=== PATIENT | female | born 1990 | race Caucasian/White ===

== ENCOUNTER 2018-08-02 05:00 | Inpatient (IN) | payer OTHER ==
[~2018-08-02] VITALS: Ht 170.2 cm; Wt 134.0 kg
[~2018-08-02 05:00] MED LIST: ALBU90OI INH; BCP; BIRTH CONTROLE; CEPH500 PO; CIPR500 PO; CLAR250 PO; Cleocin HCl300 MG PO; DIPATR PO; DOXY100 PO; ERYSTE250 PO; HYDACE5 PO; HYDGUAL120 PO; LABE100 PO; LISI20 PO; METF500C PO; NAPR500 PO; ONDA4ODT MM; OXYACE5T PO; PROM25 PO; RXDIPATR PO; RXOXYACE PO; SULTRIDS PO; TRAM50 PO; VITAMIN D32000 UNIT PO
[2018-08-02] MEDS ORDERED: LABE200 PO (05:21)
[2018-08-02] MEDS ORDERED: IRON160 M1 PO (05:22)
[2018-08-02] MEDS ORDERED: DOCU100 PO (05:23)
[2018-08-02] MEDS ORDERED: EVENING PRIMR1000 MG PO (05:24)
[2018-08-02 05:55] LABS: BASOPHILS ABSOLUTE AUTO 0.03 K/mm3 (0.00-0.23); BASOPHILS PERCENT AUTO 0 % (0-2); EOSINOPHILS ABSOLUTE AUTO 0.07 K/mm3 (0.00-0.68); EOSINOPHILS PERCENT AUTO 1 % (0-6); Hematocrit 33.7 % (33.0-51.0); Hemoglobin 10.6 g/dL (11.5-16.0); IMMATURE GRAN ABSOLUTE AUTO 0.05 K/mm3 (0.00-0.10); IMMATURE GRAN PERCENT AUTO 1 % (0-1); LYMPHOCYTES ABSOLUTE AUTO 2.47 K/mm3 (0.84-5.20); LYMPHOCYTES PERCENT AUTO 25 % (21-46); MONOCYTES ABSOLUTE AUTO 0.73 K/mm3 (0.16-1.47); MONOCYTES PERCENT AUTO 8 % (4-13); Mean Corpuscular HGB 25.7 pg (26.0-34.0); Mean Corpuscular HGB Conc 31.5 g/dL (31.5-36.5); Mean Corpuscular Volume 82 fL (80-100); Mean Platelet Volume 11.3 fL (9.1-12.4); NEUTROPHILS ABSOLUTE AUTO 6.42 K/mm3 (1.96-9.15); NEUTROPHILS PERCENT AUTO 66 % (41-73); Platelet Count 181 K/mm3 (150-400); RDW Coefficient Variation 15.8 % (11.7-14.2); RDW Standard Deviation 46.3 fL (35.1-46.3); Red Blood Cell Count 4.12 M/mm3 (3.80-5.20); White Blood Cell Count 9.77 K/mm3 (4.00-11.30)
[2018-08-02 06:15] LABS: Alanine Aminotransfer (ALT/SGP 11 U/L (12-78); Albumin, Blood 2.6 g/dL (3.4-5.0); Albumin/Globulin Ratio 0.6 (0.8-1.8); Alk Phos 132 U/L (50-136); Anion Gap 9 mmol/L (6-16); Aspartate Aminotrans (AST/SGOT 11 U/L (12-37); Bilirubin, Direct <0.1 mg/dL (0.0-0.3); Bilirubin, Indirect Unable to Calculate mg/dL (0.1-0.7); Bilirubin, Total 0.7 mg/dL (0.1-1.0); Blood Urea Nitrogen 9 mg/dL (8-24); Bun/Creatinine Ratio 13.4 (12.0-20.0); CO2, Blood 21 mmol/L (21-32); Calcium, Blood 9.8 mg/dL (8.5-10.1); Chloride, Blood 107 mmol/L (98-108); Creatinine, Blood 0.67 mg/dL (0.40-1.00); Glomerular Filtration Rate >60 (60-); Glucose, Blood 92 mg/dL (70-99); Sodium, Blood 137 mmol/L (136-145); Total Protein, Blood 6.6 g/dL (6.4-8.2)
--- NOTE | 2018-08-02 12:36 | NUR ---
[facility] CALLED OR FOR EPIDURAL
--- NOTE | 2018-08-02 14:30 | NUR ---
ASSUMED CARE OF PT. IN BED, FRIENDS AND FOB AT BEDSIDE.
--- NOTE | 2018-08-02 18:47 | NUR ---
REPORT TO ONCOMING SHIFT
[2018-08-03 05:39] LABS: BASOPHILS ABSOLUTE AUTO 0.01 K/mm3 (0.00-0.23); BASOPHILS PERCENT AUTO 0 % (0-2); EOSINOPHILS ABSOLUTE AUTO 0.02 K/mm3 (0.00-0.68); EOSINOPHILS PERCENT AUTO 0 % (0-6); Hematocrit 29.3 % (33.0-51.0); Hemoglobin 9.2 g/dL (11.5-16.0); IMMATURE GRAN ABSOLUTE AUTO 0.06 K/mm3 (0.00-0.10); IMMATURE GRAN PERCENT AUTO 1 % (0-1); LYMPHOCYTES ABSOLUTE AUTO 1.58 K/mm3 (0.84-5.20); LYMPHOCYTES PERCENT AUTO 14 % (21-46); MONOCYTES ABSOLUTE AUTO 0.82 K/mm3 (0.16-1.47); MONOCYTES PERCENT AUTO 7 % (4-13); Mean Corpuscular HGB 25.9 pg (26.0-34.0); Mean Corpuscular HGB Conc 31.4 g/dL (31.5-36.5); Mean Corpuscular Volume 83 fL (80-100); Mean Platelet Volume 10.9 fL (9.1-12.4); NEUTROPHILS ABSOLUTE AUTO 8.81 K/mm3 (1.96-9.15); NEUTROPHILS PERCENT AUTO 78 % (41-73); Platelet Count 165 K/mm3 (150-400); RDW Coefficient Variation 15.7 % (11.7-14.2); Red Blood Cell Count 3.55 M/mm3 (3.80-5.20)
[2018-08-04] MEDS ORDERED: IBUP800 PO (12:42)
--- NOTE | 2018-08-04 23:04 | NUR ---
PT DISCHARGED TO HOME. DISCHARGE INSTRUCTIONS GIVEN. NO QUESTIONS OR CONCERNS AT THIS TIME. ADVISED TO CALL WITH ANY QUESTIONS. TO F/U AT [facility] AND WEDNESDAY. PRESCRIPTION GIVEN TO PT.
== END 2018-08-04 20:42 | disposition home or self-care (01) | DRG 807 ==
LOC: BC 05:00
PROVIDERS: ADMIT Nurse Practitioner Obstetrics & Gynecology
PROC: 10E0XZZ Delivery of Products of Conception, External Approach (ICD-10-PCS; principal; 2018-08-02)
PROC: 3E0R3BZ Introduction of Anesthetic Agent into Spinal Canal, Percutaneous Approach (ICD-10-PCS; 2018-08-02)
PROC: 3E0P7VZ Introduction of Hormone into Female Reproductive, Via Natural or Artificial Opening (ICD-10-PCS; 2018-08-02)
PROC: 3E033VJ Introduction of Other Hormone into Peripheral Vein, Percutaneous Approach (ICD-10-PCS; 2018-08-02)
PROC: 10907ZC Drainage of Amniotic Fluid, Therapeutic from Products of Conception, Via Natural or Artificial Opening (ICD-10-PCS; 2018-08-02)
DX: O11.4 Pre-existing hypertension with pre-eclampsia, complicating childbirth (principal); Z37.0 Single live birth; Z3A.37 37 weeks gestation of pregnancy; Z88.1 Allergy status to other antibiotic agents; Z88.5 Allergy status to narcotic agent; Z88.0 Allergy status to penicillin; Z88.8 Allergy status to other drugs, medicaments and biological substances
CPT/HCPCS: 36415; 51702; 80053; 82248; 82947; 85025; A9270; J1885; J2590; J3010; J7120

== ENCOUNTER 2019-10-28 20:09 | Emergency (ER) | payer OTHER ==
[~2019-10-28] VITALS: Ht 170.2 cm; Wt 135.2 kg
[~2019-10-28 20:09] MED LIST changes: +DOCU100 PO; +EVENING PRIMR1000 MG PO; +IBUP800 PO; +IRON160 M1 PO
[2019-10-28] MEDS ORDERED: Buspirone HCl15 MG PO (20:49)
[2019-10-28 21:01] LABS: Source, Urine Clean Catch
[2019-10-28 21:01] LABS: BASOPHILS ABSOLUTE AUTO 0.06 K/mm3 (0.00-0.23); BASOPHILS PERCENT AUTO 1 % (0-2); EOSINOPHILS ABSOLUTE AUTO 0.13 K/mm3 (0.00-0.68); EOSINOPHILS PERCENT AUTO 1 % (0-6); Hematocrit 38.8 % (33.0-51.0); Hemoglobin 12.4 g/dL (11.5-16.0); IMMATURE GRAN ABSOLUTE AUTO 0.03 K/mm3 (0.00-0.10); IMMATURE GRAN PERCENT AUTO 0 % (0-1); LYMPHOCYTES ABSOLUTE AUTO 3.08 K/mm3 (0.84-5.20); LYMPHOCYTES PERCENT AUTO 31 % (21-46); MONOCYTES ABSOLUTE AUTO 0.74 K/mm3 (0.16-1.47); MONOCYTES PERCENT AUTO 7 % (4-13); Mean Corpuscular HGB 26.1 pg (26.0-34.0); Mean Corpuscular Volume 82 fL (80-100); NEUTROPHILS ABSOLUTE AUTO 6.06 K/mm3 (1.96-9.15); NEUTROPHILS PERCENT AUTO 60 % (41-73); Platelet Count 259 K/mm3 (150-400); RDW Coefficient Variation 13.2 % (11.7-14.2); Red Blood Cell Count 4.76 M/mm3 (3.80-5.20)
[2019-10-28 21:05] LABS: Appearance, Urine Clear (Clear); Bilirubin, Urine Neg (Neg); Blood, Urine 3+ (Neg); Color, Urine Yellow (P-Yellow); Glucose Qualitative, Urine Neg (Neg); Ketones, Urine Neg (Neg); Leukocyte Esterase, Urine Neg (Neg); Nitrite, Urine Neg (Neg); Protein, Urine 2+ (Neg); Urobilinogen, Urine NORM (Normal); pH, Urine 6.5 (5.0-8.0)
[2019-10-28 21:12] LABS: White Blood Cells, Urine Not Seen /hpf (0-5)
[2019-10-28 21:13] LABS: Bacteria Few /hpf; Mucus Light (0-Heavy); Squamous Epithelial Cells Few /hpf (Few)
[2019-10-28 22:21] LABS: Alanine Aminotransfer (ALT/SGP 19 U/L (12-78); Albumin, Blood 3.4 g/dL (3.4-5.0); Albumin/Globulin Ratio 0.9 (0.8-1.8); Alk Phos 68 U/L (50-136); Anion Gap 6 mmol/L (6-16); Aspartate Aminotrans (AST/SGOT 7 U/L (12-37); Bilirubin, Total 0.4 mg/dL (0.1-1.0); Blood Urea Nitrogen 11 mg/dL (8-24); Bun/Creatinine Ratio 12.7 (12.0-20.0); CO2, Blood 28 mmol/L (21-32); Calcium, Blood 8.9 mg/dL (8.5-10.1); Chloride, Blood 107 mmol/L (98-108); Creatinine, Blood 0.87 mg/dL (0.40-1.00); Globulin, Blood 3.9 g/dL (2.2-4.0); Glomerular Filtration Rate >60 (60-); Glucose, Blood 109 mg/dL (70-99); Potassium, Blood 3.5 mmol/L (3.5-5.5); Sodium, Blood 141 mmol/L (136-145); Total Protein, Blood 7.3 g/dL (6.4-8.2)
[2019-10-28] MEDS ORDERED: IBUP400 PO (22:50)
[2019-10-28] MEDS ORDERED: ONDA4ODT SL (22:50)
[2019-10-28] MEDS ORDERED: Percocet 5-3251 EACH PO (22:50)
== END 2019-10-28 23:50 | disposition home or self-care (01) ==
LOC: ER 20:09
PROVIDERS: Emergency Medicine
DX: K65.9 Peritonitis, unspecified (principal); I10 Essential (primary) hypertension; Z91.09 Other allergy status, other than to drugs and biological substances; Z88.0 Allergy status to penicillin; Z88.5 Allergy status to narcotic agent; Z87.891 Personal history of nicotine dependence; Z79.899 Other long term (current) drug therapy
CPT/HCPCS: 36415; 74176; 80053; 81001; 81025; 83690; 85025; 96374; 96376; 99284-25; A9270; A9270-GY

== ENCOUNTER 2019-11-18 17:07 | Observation (INO) | payer OTHER ==
[~2019-11-18] VITALS: Ht 170.2 cm; Wt 135.2 kg
[~2019-11-18 17:07] MED LIST changes: +Buspirone HCl15 MG PO; +IBUP400 PO; +ONDA4ODT SL; +Percocet 5-3251 EACH PO
[2019-11-18 19:19] LABS: Source, Urine Clean Catch
[2019-11-18 19:19] LABS: BASOPHILS ABSOLUTE AUTO 0.04 K/mm3 (0.00-0.23); BASOPHILS PERCENT AUTO 0 % (0-2); EOSINOPHILS ABSOLUTE AUTO 0.16 K/mm3 (0.00-0.68); EOSINOPHILS PERCENT AUTO 2 % (0-6); Hematocrit 38.1 % (33.0-51.0); Hemoglobin 11.8 g/dL (11.5-16.0); IMMATURE GRAN ABSOLUTE AUTO 0.03 K/mm3 (0.00-0.10); IMMATURE GRAN PERCENT AUTO 0 % (0-1); LYMPHOCYTES ABSOLUTE AUTO 2.95 K/mm3 (0.84-5.20); LYMPHOCYTES PERCENT AUTO 29 % (21-46); MONOCYTES ABSOLUTE AUTO 0.67 K/mm3 (0.16-1.47); MONOCYTES PERCENT AUTO 7 % (4-13); Mean Corpuscular HGB 25.3 pg (26.0-34.0); Mean Corpuscular Volume 82 fL (80-100); Mean Platelet Volume 10.3 fL (9.1-12.4); NEUTROPHILS PERCENT AUTO 63 % (41-73); Platelet Count 290 K/mm3 (150-400); RDW Standard Deviation 38.6 fL (35.1-46.3); Red Blood Cell Count 4.67 M/mm3 (3.80-5.20); White Blood Cell Count 10.35 K/mm3 (4.00-11.30)
[2019-11-18 19:22] LABS: Bilirubin, Urine Neg (Neg); Blood, Urine 2+ (Neg); Glucose Qualitative, Urine Neg (Neg); Ketones, Urine 1+ (Neg); Leukocyte Esterase, Urine Neg (Neg); Nitrite, Urine Neg (Neg); Protein, Urine 1+ (Neg); Specific Gravity, Urine 1.025 (1.003-1.022); Urobilinogen, Urine 1+ (Normal)
[2019-11-18 19:30] LABS: Appearance, Urine Clear (Clear); Color, Urine Yellow (P-Yellow)
[2019-11-18 19:31] LABS: Bacteria Few /hpf; Squamous Epithelial Cells Few /hpf (Few); White Blood Cells, Urine 0-2 /hpf (0-5)
[2019-11-18 19:40] LABS: Alanine Aminotransfer (ALT/SGP 27 U/L (12-78); Albumin, Blood 3.5 g/dL (3.4-5.0); Albumin/Globulin Ratio 0.9 (0.8-1.8); Alk Phos 59 U/L (50-136); Anion Gap 6 mmol/L (6-16); Aspartate Aminotrans (AST/SGOT 12 U/L (12-37); Bilirubin, Total 0.5 mg/dL (0.1-1.0); Blood Urea Nitrogen 16 mg/dL (8-24); Bun/Creatinine Ratio 20.5 (12.0-20.0); CO2, Blood 25 mmol/L (21-32); Calcium, Blood 9.3 mg/dL (8.5-10.1); Chloride, Blood 109 mmol/L (98-108); Creatinine, Blood 0.78 mg/dL (0.40-1.00); Glomerular Filtration Rate >60 (60-); Glucose, Blood 98 mg/dL (70-99); Potassium, Blood 3.5 mmol/L (3.5-5.5); Sodium, Blood 140 mmol/L (136-145); Total Protein, Blood 7.5 g/dL (6.4-8.2); Troponin I <0.015 ng/mL (0.000-0.040)
[2019-11-18] MEDS ORDERED: Ventolin/Prove6.7 GM INH (20:54)
[2019-11-18] MEDS ORDERED: BUSP5 PO (22:26)
[2019-11-18] MEDS ORDERED: BUSP10 PO (22:27)
--- NOTE | 2019-11-19 05:43 | NUR ---
SHIFT SUMMARY PT NEW ADMIT YESTARDAY EVENING. AAOX4. NPO THIS AM. PT REPORTING ABD PAIN X1 MONTH, WORSENING OVER THE LAST 24 HRS. PT REPORTING NO DISCOMFORT AT REST, BUT INCREASES WITH MOVEMENT/AMBULATION. ABD SOFT BUT TENDER WITH PALPATION + REBOUND TENDERNESS TO LOWER QUADRANTS. PT DENIES NEED FOR PAIN MEDICATION SINCE ADMISSION TO FLOOR. HTN NOTED, PT REPORTING BP "HIGH BUT NORMAL FOR ME." NOTIFIED + HOME MEDICATION ORDERED, WILL RE-ASSESS THIS AM. PT CURRENTLY [age] YEAR OLD AT HOME, BREAST PUMP IN ROOM. PT CURRENTLY RESTING WELL IN ROOM WITH CALL LIGHT IN REACH.
--- NOTE | 2019-11-19 15:03 | NUR ---
SHIFT SUMMARY PT A&OX4, INDEPENDENT IN ROOM TO BRP, VOIDING WELL, PAXTON PO REG DIET. PAIN MANAGED WITH 25 MCGS FENT & TYLENOL. BP ISSUES T/O SHIFT. PLAN FOR NPO MIDNIGHT AND SURGERY TOMORROW. WILL REPORT TO ONCOMING NOC RN.
--- NOTE | 2019-11-20 03:42 | NUR ---
SHIFT SUMMARY PT RESTING WELL THIS AM. AAOX4. NPO SINCE MIDNIGHT. DISCOMFORT CONTROLLED WITH TYLENOL X1 YESTARDAY EVENING. NO NAUSEA/EMESIS. PT REPORTING PAIN 1-2/10 T/O NIGHT. INDEPENDENT IN ROOM. IVF PER ORDERS. NO ACUTE CHANGES OVER NIGHT. PT CURRENTLY RESTING IN BED WITH CALL LIGHT IN REACH.
--- NOTE | 2019-11-20 09:27 | NUR ---
DR STRAUSS IN TO SEE PT. OKAY TO EAT. PLAN TO DC.
[2019-11-20] MEDS ORDERED: LABE100 PO (11:51)
--- NOTE | 2019-11-20 13:12 | NUR ---
discharged DC'D IV, CATHETER INTACT. REVIEWED DC PAPERWORK W/PT; VERBALIZED UNDERSTANDING. LEFT UNIT BY AMBULATION W/POSSESSIONS AND DC PAPERWORK IN HAND.
== END 2019-11-20 13:04 | disposition home or self-care (01) ==
LOC: ER 17:07 → SURS 17:08 → ER 20:41 → SURS 20:41
PROVIDERS: Emergency Medicine; ADMIT Surgery
DX: K55.069 Acute infarction of intestine, part and extent unspecified (principal); I10 Essential (primary) hypertension; E66.01 Morbid (severe) obesity due to excess calories; Z88.0 Allergy status to penicillin; Z88.8 Allergy status to other drugs, medicaments and biological substances; Z88.5 Allergy status to narcotic agent; Z20.828 Contact with and (suspected) exposure to other viral communicable diseases; Z79.899 Other long term (current) drug therapy; Z87.891 Personal history of nicotine dependence; Z68.42 Body mass index [BMI] 45.0-49.9, adult
CPT/HCPCS: 36415; 74177; 80053; 81001; 83605; 83690; 84484; 84702; 85025; 93005; 93010; 99285-25; A9270; J3010; J7120; Q9967; U0003

== ENCOUNTER 2020-01-25 09:32 | Day surgery (SDC) | payer OTHER ==
[~2020-01-25] VITALS: Ht 170.2 cm; Wt 136.0 kg
[~2020-01-25 09:32] MED LIST changes: +BUSP10 PO; +BUSP5 PO; +Ventolin/Prove6.7 GM INH
--- NOTE | 2020-01-25 10:17 | NUR ---
History, Chart, Medications and Allergies reviewed before start of procedure. Patient confirms NPO status and agrees with scheduled surgery. Patient States Post-Procedure ride home has been arranged.
--- NOTE | 2020-01-25 10:34 | NUR ---
01/25/20 1034 Popeye Galvan History, Chart, Medications and Allergies reviewed before start of procedure.MONITOR INTACT WITH CONTINUOUS PULSE OXIMETRY AND INTERMITTENT BP.3-LEAD EKG REVIEWED WITH PHYSICIAN PRIOR TO START OF PROCEDURE.O2 VIA N/C INTACT THROUGHOUT SEDATION/PROCEDURE. See Anesthesia record.
--- NOTE | 2020-01-25 11:41 | NUR ---
Patient up to Ambulate independently. Gait steady. Discharge instructions reviewed with patient. Patient verbalizes understanding. Copy given to patient to take home. History, Chart, Medications and Allergies reviewed before start of procedure.Patient States Post-Procedure ride home has been arranged. Discharged via wheelchair to private car for ride home.
== END 2020-01-25 11:54 | disposition home or self-care (01) ==
LOC: ORSCMMR 09:32 → ORD 10:30 → ORSCMMR 11:54
PROVIDERS: Internal Medicine Gastroenterology
PROC: 0DB58ZX Excision of Esophagus, Via Natural or Artificial Opening Endoscopic, Diagnostic (ICD-10-PCS; principal; 2020-01-25 10:30)
PROC: 0DB98ZX Excision of Duodenum, Via Natural or Artificial Opening Endoscopic, Diagnostic (ICD-10-PCS; principal; 2020-01-25 10:30)
PROC: 0DB78ZX Excision of Stomach, Pylorus, Via Natural or Artificial Opening Endoscopic, Diagnostic (ICD-10-PCS; principal; 2020-01-25 10:30)
DX: K21.9 Gastro-esophageal reflux disease without esophagitis (principal); I10 Essential (primary) hypertension; J45.909 Unspecified asthma, uncomplicated; Z87.891 Personal history of nicotine dependence; Z79.899 Other long term (current) drug therapy; E66.01 Morbid (severe) obesity due to excess calories; Z68.42 Body mass index [BMI] 45.0-49.9, adult
CPT/HCPCS: 88305; J2704; J7120

== ENCOUNTER 2020-07-14 12:58 | Emergency (ER) | payer OTHER ==
[~2020-07-14] VITALS: Ht 170.2 cm; Wt 131.1 kg
[2020-07-14 13:44] LABS: BASOPHILS ABSOLUTE AUTO 0.03 K/mm3 (0.00-0.23); BASOPHILS PERCENT AUTO 0 % (0-2); EOSINOPHILS ABSOLUTE AUTO 0.03 K/mm3 (0.00-0.68); EOSINOPHILS PERCENT AUTO 0 % (0-6); Hemoglobin 10.5 g/dL (11.5-16.0); IMMATURE GRAN ABSOLUTE AUTO 0.05 K/mm3 (0.00-0.10); IMMATURE GRAN PERCENT AUTO 0 % (0-1); LYMPHOCYTES ABSOLUTE AUTO 1.34 K/mm3 (0.84-5.20); LYMPHOCYTES PERCENT AUTO 12 % (21-46); MONOCYTES ABSOLUTE AUTO 0.78 K/mm3 (0.16-1.47); MONOCYTES PERCENT AUTO 7 % (4-13); Mean Corpuscular HGB 23.6 pg (26.0-34.0); Mean Corpuscular HGB Conc 30.9 g/dL (31.5-36.5); Mean Corpuscular Volume 76 fL (80-100); Mean Platelet Volume 10.3 fL (9.1-12.4); NEUTROPHILS ABSOLUTE AUTO 9.11 K/mm3 (1.96-9.15); NEUTROPHILS PERCENT AUTO 80 % (41-73); Platelet Count 313 K/mm3 (150-400); RDW Coefficient Variation 14.9 % (11.7-14.2); RDW Standard Deviation 41.7 fL (35.1-46.3); Red Blood Cell Count 4.45 M/mm3 (3.80-5.20); White Blood Cell Count 11.34 K/mm3 (4.00-11.30)
[2020-07-14 14:00] LABS: Alanine Aminotransfer (ALT/SGP 21 U/L (12-78); Albumin, Blood 3.3 g/dL (3.4-5.0); Albumin/Globulin Ratio 0.7 (0.8-1.8); Alk Phos 53 U/L (50-136); Anion Gap 6 mmol/L (6-16); Aspartate Aminotrans (AST/SGOT 6 U/L (12-37); Bilirubin, Total 1.4 mg/dL (0.1-1.0); Blood Urea Nitrogen 10 mg/dL (8-24); Bun/Creatinine Ratio 10.5 (12.0-20.0); CO2, Blood 22 mmol/L (21-32); Calcium, Blood 9.2 mg/dL (8.5-10.1); Chloride, Blood 107 mmol/L (98-108); Creatinine, Blood 0.95 mg/dL (0.40-1.00); Globulin, Blood 4.8 g/dL (2.2-4.0); Glomerular Filtration Rate >60 (60-); Glucose, Blood 98 mg/dL (70-99); Potassium, Blood 4.1 mmol/L (3.5-5.5); Sodium, Blood 135 mmol/L (136-145); Total Protein, Blood 8.1 g/dL (6.4-8.2)
[2020-07-14 14:50] LABS: Source, Urine Clean Catch
[2020-07-14 15:20] LABS: Appearance, Urine Clear (Clear); Bilirubin, Urine Neg (Neg); Blood, Urine 2+ (Neg); Color, Urine Amber (P-Yellow); Glucose Qualitative, Urine Neg (Neg); Ketones, Urine 1+ (Neg); Leukocyte Esterase, Urine 1+ (Neg); Nitrite, Urine Neg (Neg); Protein, Urine 1+ (Neg); Urobilinogen, Urine 1+ (Normal)
[2020-07-14 15:33] LABS: Mucus Light (0-Heavy); Squamous Epithelial Cells Mod /hpf (Few); Transitional Epithelial Cells Few /hpf (0-Rare)
[2020-07-14 15:34] LABS: Bacteria Few /hpf
[2020-07-14] MEDS ORDERED: Bactrim Ds Tab1 EACH PO (16:47)
== END 2020-07-14 16:58 | disposition home or self-care (01) ==
LOC: ER 12:58
PROVIDERS: Physician Assistant
DX: N39.0 Urinary tract infection, site not specified (principal); I10 Essential (primary) hypertension; Z86.73 Personal history of transient ischemic attack (TIA), and cerebral infarction without residual deficits; Z79.51 Long term (current) use of inhaled steroids; Z88.0 Allergy status to penicillin; Z88.6 Allergy status to analgesic agent; Z88.8 Allergy status to other drugs, medicaments and biological substances; Z91.09 Other allergy status, other than to drugs and biological substances
CPT/HCPCS: 36415; 80053; 81001; 81025; 83605; 83690; 85025; 93005; 93010; 96374; 99283-25; A9270; J1885; J7030

== ENCOUNTER → 2020-10-11 | Outpatient (CLI) | payer OTHER ==
[~2020-10-11] MED LIST changes: +Bactrim Ds Tab1 EACH PO
== END | disposition home or self-care (01) ==
LOC: LAB 18:23 → LAB SHORT 18:23
DX: R30.9 Painful micturition, unspecified (principal)
CPT/HCPCS: 87086

== ENCOUNTER 2022-04-12 00:47 | Emergency (ER) | payer OTHER ==
[~2022-04-12] VITALS: Ht 170.2 cm; Wt 99.8 kg
[2022-04-12 01:08] LABS: BASOPHILS ABSOLUTE AUTO 0.04 K/mm3 (0.00-0.23); BASOPHILS PERCENT AUTO 0 % (0-2); EOSINOPHILS ABSOLUTE AUTO 0.21 K/mm3 (0.00-0.68); EOSINOPHILS PERCENT AUTO 2 % (0-6); Hematocrit 35.8 % (33.0-51.0); Hemoglobin 11.4 g/dL (11.5-16.0); IMMATURE GRAN ABSOLUTE AUTO 0.04 K/mm3 (0.00-0.10); IMMATURE GRAN PERCENT AUTO 0 % (0-1); LYMPHOCYTES PERCENT AUTO 28 % (21-46); MONOCYTES ABSOLUTE AUTO 0.59 K/mm3 (0.16-1.47); MONOCYTES PERCENT AUTO 5 % (4-13); Mean Corpuscular HGB 24.1 pg (26.0-34.0); Mean Corpuscular HGB Conc 31.8 g/dL (31.5-36.5); Mean Corpuscular Volume 76 fL (80-100); Mean Platelet Volume 10.5 fL (9.1-12.4); NEUTROPHILS ABSOLUTE AUTO 7.41 K/mm3 (1.96-9.15); NEUTROPHILS PERCENT AUTO 65 % (41-73); Platelet Count 269 K/mm3 (150-400); RDW Coefficient Variation 13.6 % (11.7-14.2); Red Blood Cell Count 4.73 M/mm3 (3.80-5.20); White Blood Cell Count 11.49 K/mm3 (4.00-11.30)
[2022-04-12 01:19] LABS: Source, Urine Clean Catch
[2022-04-12 01:21] LABS: Albumin, Blood 3.5 g/dL (3.4-5.0); Bilirubin, Total 0.4 mg/dL (0.1-1.0); Bun/Creatinine Ratio 15.4 (12.0-20.0); Calcium, Blood 8.9 mg/dL (8.5-10.1); Creatinine, Blood 1.17 mg/dL (0.40-1.00); Globulin, Blood 3.4 g/dL (2.2-4.0); Potassium, Blood 3.1 mmol/L (3.5-5.5); Total Protein, Blood 6.9 g/dL (6.4-8.2)
[2022-04-12 01:22] LABS: Bilirubin, Urine Neg (Neg); Blood, Urine 5+ (Neg); Glucose Qualitative, Urine Neg (Neg); Ketones, Urine 1+ (Neg); Leukocyte Esterase, Urine Neg (Neg); Nitrite, Urine Neg (Neg); Protein, Urine Neg (Neg); Specific Gravity, Urine 1.015 (1.003-1.022); Urobilinogen, Urine NORM (Normal)
[2022-04-12 01:27] LABS: Appearance, Urine Hazy (Clear); Color, Urine Pale Yellow (P-Yellow)
[2022-04-12 01:28] LABS: Bacteria Not Seen /hpf; Red Blood Cells, Urine TNTC /hpf (0-2); Squamous Epithelial Cells Not Seen /hpf (Few); White Blood Cells, Urine 0-2 /hpf (0-5)
[2022-04-12] MEDS ORDERED: AMPDEX10CR PO (02:17)
[2022-04-12] MEDS ORDERED: TAMS.4ER PO (03:07)
[2022-04-12] MEDS ORDERED: OXYACE7.5T PO (03:07)
[2022-04-12] MEDS ORDERED: CEFP200 PO (03:26)
== END 2022-04-12 03:45 | disposition home or self-care (01) ==
LOC: ER 00:47
PROVIDERS: Emergency Medicine
DX: N13.2 Hydronephrosis with renal and ureteral calculous obstruction (principal); I10 Essential (primary) hypertension; Z87.891 Personal history of nicotine dependence; Z88.5 Allergy status to narcotic agent; Z88.0 Allergy status to penicillin; Z91.048 Other nonmedicinal substance allergy status; Z79.899 Other long term (current) drug therapy; Z98.84 Bariatric surgery status
CPT/HCPCS: 74177; 80053; 81001; 81025; 83690; 85025; A9270; J1885; J3010; Q9967

== ENCOUNTER → 2022-12-04 | Outpatient (CLI) | payer OTHER ==
[~2022-12-04] MED LIST changes: +AMPDEX10CR PO; +CEFP200 PO; +OXYACE7.5T PO; +TAMS.4ER PO
[2022-12-04 08:33] LABS: BASOPHILS ABSOLUTE AUTO 0.05 K/mm3 (0.00-0.23); BASOPHILS PERCENT AUTO 1 % (0-2); EOSINOPHILS ABSOLUTE AUTO 0.13 K/mm3 (0.00-0.68); EOSINOPHILS PERCENT AUTO 1 % (0-6); Hematocrit 40.4 % (33.0-51.0); Hemoglobin 12.6 g/dL (11.5-16.0); IMMATURE GRAN ABSOLUTE AUTO 0.03 K/mm3 (0.00-0.10); IMMATURE GRAN PERCENT AUTO 0 % (0-1); LYMPHOCYTES ABSOLUTE AUTO 2.47 K/mm3 (0.84-5.20); LYMPHOCYTES PERCENT AUTO 25 % (21-46); MONOCYTES ABSOLUTE AUTO 0.66 K/mm3 (0.16-1.47); MONOCYTES PERCENT AUTO 7 % (4-13); Mean Corpuscular HGB 22.3 pg (26.0-34.0); Mean Corpuscular HGB Conc 31.2 g/dL (31.5-36.5); Mean Corpuscular Volume 71 fL (80-100); Mean Platelet Volume 9.7 fL (9.1-12.4); NEUTROPHILS PERCENT AUTO 66 % (41-73); Platelet Count 286 K/mm3 (150-400); RDW Coefficient Variation 14.9 % (11.7-14.2); RDW Standard Deviation 37.2 fL (35.1-46.3); Red Blood Cell Count 5.66 M/mm3 (3.80-5.20); White Blood Cell Count 9.74 K/mm3 (4.00-11.30)
[2022-12-04 08:43] LABS: Albumin, Blood 4.3 g/dL (3.4-5.0); Bilirubin, Total 0.8 mg/dL (0.1-1.0); Bun/Creatinine Ratio 10.3 (12.0-20.0); Calcium, Blood 9.4 mg/dL (8.5-10.1); Creatinine, Blood 0.97 mg/dL (0.40-1.00); Globulin, Blood 4.3 g/dL (2.2-4.0); Total Protein, Blood 8.6 g/dL (6.4-8.2)
== END | disposition home or self-care (01) ==
LOC: LAB 08:28 → LAB SHORT 08:28
PROVIDERS: Emergency Medicine
DX: I10 Essential (primary) hypertension (principal)
CPT/HCPCS: 80053; 85025

== ENCOUNTER → 2023-01-28 | Outpatient (CLI) | payer OTHER ==
[2023-01-28 09:36] LABS: Appearance, Urine Hazy (Clear); Bilirubin, Urine Neg (Neg); Blood, Urine Neg (Neg); Color, Urine Yellow (P-Yellow); Glucose Qualitative, Urine Neg (Neg); Ketones, Urine Neg (Neg); Leukocyte Esterase, Urine Neg (Neg); Nitrite, Urine Neg (Neg); Protein, Urine 1+ (Neg); Urobilinogen, Urine NORM (Normal)
[2023-01-28 09:47] LABS: Red Blood Cells, Urine 0-2 /hpf (0-2); Squamous Epithelial Cells Mod /hpf (Few)
[2023-01-28 09:48] LABS: Bacteria Rare /hpf
[2023-01-28 10:24] LABS: Creatinine Urine 91.3 mg/dL (27.00-270.00)
[2023-01-28 10:33] LABS: Protein, Urine Quantitative 11.6 mg/dL (0.0-11.9)
[2023-01-31 22:27] LABS: CREATININE,URINE - PER 24H 1310 mg/d (700-1600); CREATININE,URINE - PER VOLUME 97 mg/dL; DOPAMINE,URINE - PER 24H 262 ug/d (71-485); DOPAMINE,URINE - PER VOLUME 194 ug/L; DOPAMINE,URINE - RATIO TO CRT 200 ug/g CRT (0-250); EPINEPHRINE,URINE - PER 24H 3 ug/d (1-14); EPINEPHRINE,URINE - PER VOLUME 2 ug/L; EPINEPHRINE,URN - RATIO TO CRT 2 ug/g CRT (0-20); HOURS COLLECTED 24 hr; NOREPINEPHRINE,UR - PER VOLUME 33 ug/L; NOREPINEPHRINE,URINE - PER 24H 45 ug/d (14-120); NOREPINEPHRINE,URN/CRT RATIO 34 ug/g CRT (0-45); TOTAL VOLUME 1350 mL
[2023-02-01 07:47] LABS: CREATININE,URINE - PER 24H 1310 mg/d (700-1600); CREATININE,URINE - PER VOLUME 97 mg/dL; HOURS COLLECTED 24 hr; METANEPHRINE,UR - RATIO TO CRT 57 ug/g CRT (0-300); METANEPHRINE,URINE - PER 24H 74 ug/d (36-229); METANEPHRINE,URN - PER VOLUME 55 ug/L; NORMETANEPHRINE,U - PER VOLUME 225 ug/L; NORMETANEPHRINE,URN - PER 24H 304 ug/d (95-650); NORMETANEPHRINE,URN/CRT RATIO 232 ug/g CRT (0-400); TOTAL VOLUME 1350 mL
[2023-02-01 09:54] LABS: CORTISOL,U FREE - RATIO TO CRT 9.48 ug/g CRT; CORTISOL,URINE FREE - PER 24H 12.4 ug/d (<=45.0); CREATININE,URINE - PER 24H 1310 mg/d (700-1600); CREATININE,URINE - PER VOLUME 97 mg/dL; HOURS COLLECTED 24 hr; TOTAL VOLUME 1350 mL
[2023-02-04 13:08] LABS: CALCIUM, URINE - PER 24H 317 mg/d (100-250); CALCIUM, URINE - PER VOLUME 23.5 mg/dL; CHLORIDE, URINE - PER 24H 124 mmol/d (140-250); CHLORIDE, URINE - PER VOLUME 92 mmol/L; CITRIC ACID, URINE - PER 24H 838 mg/d (320-1240); CITRIC ACID,URINE - PER VOLUME 621 mg/L; CREATININE, URINE - PER 24H 1242 mg/d (700-1600); CREATININE, URINE - PER VOLUME 92 mg/dL; HOURS COLLECTED 24 hr; MAGNESIUM, URINE - PER VOLUME 6.3 mg/dL; MAGNESIUM, URINE PER 24H 85 mg/d (12-199); OXALATE, URINE - PER 24H 19 mg/d (13-40); OXALATE, URINE - PER VOLUME 14 mg/L; PH, URINE 6.51 (5.00-7.50); PHOSPHORUS, URINE - PER 24H 999 mg/d (400-1300); PHOSPHORUS, URINE - PER VOLUME 74 mg/dL; POTASSIUM, URINE - PER 24H 39 mmol/d (25-125); POTASSIUM, URINE - PER VOLUME 29 mmol/L; SODIUM, URINE - PER 24H 158 mmol/d (51-286); SODIUM, URINE - PER VOLUME 117 mmol/L; SULFATE, URINE - PER 24H 15 mmol/d (6-30); SULFATE, URINE - PER VOLUME 11 mmol/L; TOTAL VOLUME 1350 mL; URIC ACID, URINE - PER 24H 585 mg/d (250-750); URIC ACID, URINE - PER VOLUME 43.3 mg/dL; URINE SUPERSATURATION INTERP Abnormal; URINE SUPERSATURATION, CAHPO4 7.01; URINE SUPERSATURATION, CAOX 5.76; URINE SUPERSATURATION, UA CALC 0.21
== END ==
LOC: LAB FUT 01-27 12:05 → LAB SHORT 08:47 → LAB 08:47
PROVIDERS: Advanced Practice Midwife; Internal Medicine Endocrinology, Diabetes & Metabolism; Urology
DX: O10.911 Unspecified pre-existing hypertension complicating pregnancy, first trimester (principal); I15.9 Secondary hypertension, unspecified; N20.1 Calculus of ureter; I16.0 Hypertensive urgency; Z3A.00 Weeks of gestation of pregnancy not specified
CPT/HCPCS: 81001; 81003; 81050; 82131; 82140; 82340; 82384; 82436; 82507; 82530; 82570; 83735; 83835; 83935; 83945; 84105; 84133; 84156; 84300; 84392; 84560

== ENCOUNTER → 2023-11-15 | Outpatient (CLI) | payer OTHER ==
[~2023-11-15] MED LIST changes: +LABE200 PO; +Labetalol HCl300 MG PO; +METF500 PO; +NIFE30ER
[2023-11-15 21:45] LABS: Urine Magnesium 8.5 mg/dL
== END | disposition home or self-care (01) ==
LOC: LAB SHORT 07:00 → LAB 07:00
PROVIDERS: Internal Medicine Endocrinology, Diabetes & Metabolism
DX: E87.6 Hypokalemia (principal)
CPT/HCPCS: 81050; 83735

== ENCOUNTER 2023-12-23 14:35 | Observation (INO) | payer OTHER ==
[~2023-12-23] VITALS: Ht 172.7 cm; Wt 106.6 kg
[2023-12-23] VITALS (16 sets, daily range): BP systolic 99–157; BP diastolic 59–119
[~2023-12-23 14:35] MED LIST changes: -OXYC5 PO
[2023-12-23] MEDS ORDERED: Bupivacaine 0.5% HCl 5 MG/ML 30MLVIAL ONE (15:24)
[2023-12-23] MEDS ORDERED: Ciprofloxacin 400MG/D5 200ML 200 ML IV SCH (15:29)
--- NOTE | 2023-12-23 15:34 | NUR ---
PT HAS 20G IV TO LEFT AC THAT FLUSHES WELL AND FLOWS TO GRAVITY.
[2023-12-23] MEDS ORDERED: Lactated Ringer's 1,000 ML IV SCH ×2 (15:35→18:05)
[2023-12-23] MEDS ORDERED: propofoL 150 ML IV ONE (15:42)
[2023-12-23] MEDS ORDERED: Rocuronium Bromide 10 MG/ML 5ML Injection IV ONE (15:44)
[2023-12-23] MEDS ORDERED: Midazolam HCl 1MG / ML 2ML Vial ONE (15:45)
[2023-12-23] MEDS ORDERED: Lidocaine HCl 2% 20 ML MDV ONE (15:45)
[2023-12-23] MEDS ORDERED: FentaNYL Citrate 50 MCG/ML 2 ML Injection ONE ×3 (15:46→17:42)
[2023-12-23] MEDS ORDERED: MetroNIDAZOLE 500MG/NS 100 ml 100 ML IV SCH (16:00)
[2023-12-23] MEDS ORDERED: Labetalol HCL 5 MG/ML 4ML Injection (Single Dose) ONE (16:09)
[2023-12-23] MEDS ORDERED: HydrALAZINE HCl 20 MG / ML 1ML Vial ONE (16:23)
[2023-12-23] MEDS ORDERED: Ketorolac Tromethamine 30mg Vial ONE (16:24)
[2023-12-23] MEDS ORDERED: Dexamethasone Sod Phos 10 MG/ML 1ML VIAL ONE (16:24)
[2023-12-23] MEDS ORDERED: Ondansetron HCl 2 MG / ML 2ML Vial ONE (16:24)
[2023-12-23] MEDS ORDERED: Sugammadex Sodium 200 MG/2ML SDV (100 MG/ML) ONE (16:37)
[2023-12-23] MEDS ORDERED: propofoL 20 ML IV ONE (17:02)
[2023-12-23] MEDS ORDERED: Morphine Sulfate 4 MG/1 ML Injection IV PRN (18:05)
[2023-12-23] MEDS ORDERED: Ondansetron HCl 2 MG / ML 2ML Vial IV PRN (18:05)
[2023-12-23] MEDS ORDERED: FLU VACC TS2024-25(6MOS UP)/PF 45 MCG/0.5 ML SYRINGE IM SCH (18:05)
[2023-12-23] MEDS ORDERED: HYDROcodone 5-APAP 325 TAB PO PRN (18:05)
[2023-12-24 04:16] VITALS: BP 100/69
--- NOTE | 2023-12-24 04:45 | NUR ---
SHIFT SUMMARY POD 1 LAP APPY PT RESTED DURING SHIFT. PAIN MANAGED PER EMAR. TOLERATING PO INTAKE, VOIDING. X4 LAP SITES, CLOSED WITH WG, C/D/I. NO REPORTS OF PASSING ANY GAS PT NEEDING SBA TO THE BATHROOM. VSS. NO OTHER CONCERNS AT THIS TIME, CALL LIGHT WITHIN REACH
[2023-12-24 07:31] VITALS: BP 111/77
[2023-12-24] MEDS ORDERED: OXYC5 PO (12:48)
--- NOTE | 2023-12-24 13:49 | NUR ---
DISCHARGE: PT TOLERATING DIET, PAIN MANAGED. WALKING IN ROOM AND VOIDING. IV DC'D WNL, TIP INTACT. PT LEFT UNIT AT ABOUT 1330 VIA WHEELCHAIR WITH FAMILY
== END 2023-12-24 13:24 | disposition home or self-care (01) ==
LOC: ER 14:35 → SURS 14:36 → ER 16:30 → SURS 17:05
PROVIDERS: ADMIT Surgery
PROC: 0DTJ0ZZ Resection of Appendix, Open Approach (ICD-10-PCS; principal; 2023-12-23 16:30)
DX: K35.80 Unspecified acute appendicitis (principal); K66.0 Peritoneal adhesions (postprocedural) (postinfection); I10 Essential (primary) hypertension; Z87.891 Personal history of nicotine dependence; Z88.0 Allergy status to penicillin; Z88.1 Allergy status to other antibiotic agents; Z88.8 Allergy status to other drugs, medicaments and biological substances; Z91.09 Other allergy status, other than to drugs and biological substances; Z79.84 Long term (current) use of oral hypoglycemic drugs; R10.31 Right lower quadrant pain; R10.33 Periumbilical pain
CPT/HCPCS: 74177; 80053; 83690; 85025; 88304; 96374; 96375; 96376; 99284-25; A9270; G0378; J0360; J0744; J1100; J1885; J2250; J2405; J2704; J3010; J7120; Q9967

== ENCOUNTER → 2023-12-23 | Outpatient (CLI) | payer OTHER ==
[~2023-12-23] MED LIST changes: +OXYC5 PO
[2023-12-23 12:19] LABS: BASOPHILS ABSOLUTE AUTO 0.04 K/mm3 (0.00-0.23); BASOPHILS PERCENT AUTO 0 % (0-2); EOSINOPHILS ABSOLUTE AUTO 0.09 K/mm3 (0.00-0.68); EOSINOPHILS PERCENT AUTO 1 % (0-6); Hematocrit 43.4 % (33.0-51.0); Hemoglobin 14.5 g/dL (11.5-16.0); IMMATURE GRAN ABSOLUTE AUTO 0.03 K/mm3 (0.00-0.10); IMMATURE GRAN PERCENT AUTO 0 % (0-1); LYMPHOCYTES ABSOLUTE AUTO 2.31 K/mm3 (0.84-5.20); LYMPHOCYTES PERCENT AUTO 26 % (21-46); MONOCYTES ABSOLUTE AUTO 0.46 K/mm3 (0.16-1.47); MONOCYTES PERCENT AUTO 5 % (4-13); Mean Corpuscular HGB 28.8 pg (26.0-34.0); Mean Corpuscular HGB Conc 33.4 g/dL (31.5-36.5); Mean Corpuscular Volume 86 fL (80-100); Mean Platelet Volume 10.1 fL (9.1-12.4); NEUTROPHILS ABSOLUTE AUTO 6.14 K/mm3 (1.96-9.15); NEUTROPHILS PERCENT AUTO 68 % (41-73); Platelet Count 238 K/mm3 (150-400); RDW Coefficient Variation 12.4 % (11.7-14.2); RDW Standard Deviation 38.4 fL (35.1-46.3); Red Blood Cell Count 5.03 M/mm3 (3.80-5.20); White Blood Cell Count 9.07 K/mm3 (4.00-11.30)
[2023-12-23 12:33] LABS: Albumin, Blood 3.9 g/dL (3.4-5.0); Albumin/Globulin Ratio 1.1 (0.8-1.8); Bilirubin, Total 1.4 mg/dL (0.1-1.0); Bun/Creatinine Ratio 12.4 (12.0-20.0); Calcium, Blood 9.2 mg/dL (8.5-10.1); Creatinine, Blood 0.97 mg/dL (0.40-1.00); Globulin, Blood 3.6 g/dL (2.2-4.0); Potassium, Blood 3.7 mmol/L (3.5-5.5); Total Protein, Blood 7.5 g/dL (6.4-8.2)
== END | disposition home or self-care (01) ==
LOC: LAB 12:14 → LAB SHORT 12:14
PROVIDERS: Chiropractor
DX: R10.31 Right lower quadrant pain (principal); R10.33 Periumbilical pain
CPT/HCPCS: 80053; 83690; 85025